=== PATIENT | male | born 1960 | race Two or more races ===

== ENCOUNTER 2017-11-14 20:51 | Inpatient (IN) | payer MEDICARE, MEDICAID ==
[~2017-11-14] VITALS: Ht 182.9 cm; Wt 132.4 kg
[2017-11-14] MEDS ORDERED: ALBU18HF2 (23:46)
[2017-11-14] MEDS ORDERED: LORA1TAB (23:46)
[2017-11-14] MEDS ORDERED: MONT10TA22 ×2 (23:46)
[2017-11-14] MEDS ORDERED: FOLI1TAB16 (23:46)
[2017-11-14] MEDS ORDERED: CHLO25CA22 PO (23:46)
[2017-11-14] MEDS ORDERED: METO50TA16 (23:46)
[2017-11-14] MEDS ORDERED: MAGN64TA13 PO (23:49)
[2017-11-14] MEDS ORDERED: IBUP800T54 PO (23:51)
[2017-11-15] MEDS ORDERED: MAGNESIUM HYDROXIDE 30 ML UDC PO PRN
[2017-11-15] MEDS ORDERED: MAG HYDROX/AL HYDROX/SIMETH 30 ML UDC PO PRN
[2017-11-15 00:48] VITALS: BP 145/80
[2017-11-15] MEDS: METOPROLOL TARTRATE 50 MG TABLET PO SCH ×3 (01:00→16:08)
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
--- NOTE | 2017-11-15 06:23 | NUR ---
GPS RN NOTES PT.REFUSED FULL BODY SKIN ASSESSMENT AND PT. ALLOWED TO ONLY SUPERFICIAL VISUAL SKIN ASSESSMENT, BOTH LOWER EXTREMITIES LYMPHEDEMA NOTED ,PICTURES TAKEN AND PLACED IN THE CHART, PT. ENCOURAGED FOR FULL BODY SKIN ASSESSMENT EXPLANID RISKS AND BENEFITS BUT STILL REFUSED.
--- NOTE | 2017-11-15 06:31 | NUR ---
GPS RN NOTED: DURING SHIFT NO BEHAVIOR PROBLEM NOTED , NO ACUTE DISTRESS NOTED , WILL CONTINUE TO MONITOR FOR SAFETY BEHAVIOR AND Q 15.
[2017-11-15 08:00] VITALS: BP 138/72
[2017-11-15] MEDS: FOLIC ACID 1 MG TABLET PO SCH (08:10)
[2017-11-15] MEDS: FAMOTIDINE (20 MG) 20 MG TABLET PO SCH (08:11)
[2017-11-15] MEDS: IBUPROFEN 400 MG TABLET PO PRN (08:11)
[2017-11-15] MEDS: MONTELUKAST SODIUM (10MG) 10 MG TABLET PO SCH (08:12)
[2017-11-15] MEDS ORDERED: FLUOXETINE HCL 20 MG/5 ML UDC PO SCH (12:30)
[2017-11-15] MEDS: FLUOXETINE HCL 20 MG CAPSULE PO SCH (13:39)
--- NOTE | 2017-11-15 15:00 | NUR ---
INITIAL DISCHARGE PLAN: Patient wishes to discharge home to [address] [place] [address] [facility] [address] . SW attempted to contact pts Vikash [phone] to confirm pt is able to return home. Pts did not answer phone SW left voicemail for callback. SHANITA will help form a safe and proper discharge in collaboration with .
[2017-11-15 16:00] VITALS: BP 159/81
[2017-11-15 19:44] VITALS: BP 177/90
[2017-11-16] MEDS: IBUPROFEN 400 MG TABLET PO PRN ×2 (06:45→20:08)
[2017-11-16 07:05] LABS: BASOPHILS % (AUTO) 0.4 % (0.0-2.0); EOSINOPHILS % (AUTO) 2.7 % (0.0-6.0); HEMATOCRIT 31 % (39-51); HEMOGLOBIN 9.7 g/dL (13.5-17.5); LYMPHOCYTES # (AUTO) 0.6 /CMM (0.8-4.8); LYMPHOCYTES % (AUTO) 25.9 % (20.0-44.0); MEAN CORPUSCULAR HGB CONC 32 g/dl (31.0-36.0); MEAN CORPUSCULAR VOLUME 101 fL (80-96); MONOCYTES # (AUTO) 0.2 /CMM (0.1-1.30); MONOCYTES % (AUTO) 8.6 % (2.0-12.0); NEUTROPHILS # (AUTO) 1.4 /CMM (1.8-8.9); NEUTROPHILS % (AUTO) 62.4 % (43.0-81.0); PLATELET COUNT (AUTO) 81 /CMM (150-450); RDW COEFFICIENT OF VARIATION 17.4 (11.5-15.0); RED BLOOD CELL COUNT(AUTO) 3.04 MIL/uL (4.5-6.0); WHITE BLOOD COUNT (AUTO) 2.2 K/uL (4.3-11.0)
[2017-11-16 07:36] LABS: ALBUMIN 2.7 g/dL (3.4-5.0); BILIRUBIN,TOTAL 2.3 mg/dL (0.2-1.0); CALCIUM, SERUM 8.7 mg/dL (8.5-10.1); MAGNESIUM 1.3 mg/dL (1.8-2.4); PHOSPHORUS 4.1 mg/dL (2.5-4.9); POTASSIUM 3.9 mmol/L (3.5-5.1); TOTAL PROTEIN, SERUM 6.6 g/dL (6.4-8.2)
[2017-11-16 07:38] LABS: THYROID STIMULATING HORMONE 6.225 uIU/mL (0.358-3.74)
[2017-11-16 08:00] VITALS: BP 156/87
[2017-11-16] MEDS: METOPROLOL TARTRATE 50 MG TABLET PO SCH ×2 (08:23→16:11)
[2017-11-16] MEDS: MONTELUKAST SODIUM (10MG) 10 MG TABLET PO SCH (08:23)
[2017-11-16] MEDS: FAMOTIDINE (20 MG) 20 MG TABLET PO SCH ×2 (08:23→09:00)
[2017-11-16] MEDS: FLUOXETINE HCL 20 MG CAPSULE PO SCH (08:23)
[2017-11-16] MEDS: FOLIC ACID 1 MG TABLET PO SCH (08:23)
[2017-11-16 08:47] LABS: BAND % (MANUAL) 1 % (0.0-5.0); EOSINOPHILS % (MANUAL) 5 % (0-4); LYMPHOCYTES % (MANUAL) 32 % (16-48); MONOCYTES % (MANUAL) 7 % (0-11.0); NEUTROPHILS % (MANUAL) 55 (42-76)
[2017-11-16] MEDS ORDERED: MAGNESIUM OXIDE 400 MG TABLET PO ONE (10:00)
--- NOTE | 2017-11-16 10:43 | NUR ---
WOUND CARE CONSULT: PT PRESENTS WITH LOWER EXTREMITY EDEMA WHICH IS " GOOD IT GETS" PER PT WITH LEG ELEVATION. DEFER TO MD FOR EDEMA. PT IS CONTINENT AND AMBULATORY. WILL SEE PRN.
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
--- NOTE | 2017-11-16 15:45 | NUR ---
LOWER EXTREMITY VENOUS DUPLEX AND ECHOCARDIOGRAM RESULT BY DR. SCHREIBER.
[2017-11-16 16:00] VITALS: BP 140/78
[2017-11-16 20:00] VITALS: BP 147/89
[2017-11-17 07:25] LABS: CALCIUM, SERUM 8.4 mg/dL (8.5-10.1); MAGNESIUM 1.3 mg/dL (1.8-2.4); POTASSIUM 4.1 mmol/L (3.5-5.1)
[2017-11-17 08:00] VITALS: BP 154/85
[2017-11-17] MEDS: FLUOXETINE HCL 20 MG CAPSULE PO SCH (09:11)
[2017-11-17] MEDS: MONTELUKAST SODIUM (10MG) 10 MG TABLET PO SCH (09:11)
[2017-11-17] MEDS: FOLIC ACID 1 MG TABLET PO SCH (09:11)
[2017-11-17] MEDS: FAMOTIDINE (20 MG) 20 MG TABLET PO SCH (09:11)
[2017-11-17] MEDS: METOPROLOL TARTRATE 50 MG TABLET PO SCH ×2 (09:12→17:34)
[2017-11-17] MEDS: LORAZEPAM 1 MG TABLET PO PRN (09:18)
--- NOTE | 2017-11-17 09:29 | NUR ---
GPS/RN-NOTES PATIENT REQUESTING ATIVAN STATED" I'M GETTING ANXIOUS". ATIVAN 1MG P.O GIVEN PRN ORDER. WILL CONT. MONITORING FOR SAFETY AND BEHAVIOR.
[2017-11-17] MEDS ORDERED: MAGNESIUM OXIDE 400 MG TABLET PO ONE (11:00)
[2017-11-17] MEDS ORDERED: GUAIFENESIN/CODEINE 10 ML UDC PO PRN (14:00)
--- NOTE | 2017-11-17 14:16 | NUR ---
GPS/RN-NOTES NOTED PATIENT WITH EPISODE OF COUGHING,DR. SCHREIBER MADE AWARE WITH T.O ORDER OF ROBITUSSIN 100MG P.O Q4HRS PRN .NOTED AND CARRIED OUT.
[2017-11-17 16:00] VITALS: BP 158/88
[2017-11-17] MEDS: GUAIFENESIN 300 MG/15 ML UDC PO PRN ×2 (16:20→21:18)
--- NOTE | 2017-11-17 16:30 | NUR ---
GPS/RN-NOTES PATIENT NOTED COUGHING ,ROBITUSSIN 100MG P.O GIVEN PRN ORDER.
[2017-11-17] MEDS: IBUPROFEN 400 MG TABLET PO PRN (17:53)
--- NOTE | 2017-11-17 17:55 | NUR ---
GPS/RN-NOTES PATIENT REQUESTING MOTRIN FOR HIS 710 LEFT LEG. MOTRIN 400MG P.O GIVEN PRN ORDER.
--- NOTE | 2017-11-17 18:00 | NUR ---
GPS/RN-NOTES PATIENT STRONGLY REFUSED SHOWER THIS SHIFT DESPITE ENCOURAGEMENT. PATIENT GETS IRRITATED AND ANGRY. OFFERED SEVERAL TIMES BUT PATIENT STILL REFUSED.
[2017-11-17 20:00] VITALS: BP 151/78
[2017-11-17] MEDS: TEMAZEPAM 7.5 MG CAPSULE PO PRN (21:44)
[2017-11-18] MEDS: LORAZEPAM 1 MG TABLET PO PRN ×2 (00:10→23:17)
[2017-11-18] MEDS: GUAIFENESIN 300 MG/15 ML UDC PO PRN ×4 (01:30→22:11)
[2017-11-18] MEDS: ACETAMINOPHEN 325 MG TABLET PO PRN ×2 (07:37→16:53)
[2017-11-18 07:38] LABS: CALCIUM, SERUM 8.6 mg/dL (8.5-10.1); CREATININE 1.1 mg/dL (0.6-1.3)
[2017-11-18 07:59] LABS: MAGNESIUM 1.2 mg/dL (1.8-2.4)
[2017-11-18 08:00] VITALS: BP 178/99
--- NOTE | 2017-11-18 08:09 | NUR ---
DR. SCHREIBER NOTIFIED ABOUT THE TEMP OF 102 AND PT. IS COUGHING AND WITH ORDERS AND WAS NOTIFIED ABOUT THE MAGNESIUM OF 1.2.
[2017-11-18] MEDS: ALBUTEROL FS 2.5 MG/3 ML VIAL.NEB NEB PRN ×2 (08:17→20:09)
[2017-11-18] MEDS: FLUOXETINE HCL 20 MG CAPSULE PO SCH (08:35)
[2017-11-18] MEDS: FAMOTIDINE (20 MG) 20 MG TABLET PO SCH (08:35)
[2017-11-18] MEDS: FOLIC ACID 1 MG TABLET PO SCH (08:35)
[2017-11-18] MEDS: METOPROLOL TARTRATE 50 MG TABLET PO SCH ×2 (08:36→16:36)
[2017-11-18] MEDS: MONTELUKAST SODIUM (10MG) 10 MG TABLET PO SCH (08:36)
[2017-11-18] MEDS: LEVOFLOXACIN (500MG) 500 MG TABLET PO SCH (09:56)
[2017-11-18] MEDS: MAGNESIUM OXIDE 400 MG TABLET PO SCH ×2 (09:56→16:53)
--- NOTE | 2017-11-18 10:00 | NUR ---
GPS/RN-NOTES PATIENT TEMP. AT THIS TIME WAS 99. ENCOURAGE TO INCREASE FLUID INTAKE. ALSO OFFERED SHOWER BUT PATIENT REFUSED.
[2017-11-18 15:22] LABS: APPEARANCE,URINE CLEAR (CLEAR); BILIRUBIN,URINE NEGATIVE (NEGATIVE); BLOOD, URINE NEGATIVE Ery/uL (NEGATIVE); KETONES,URINE NEGATIVE (NEGATIVE); LEUKOCYTE ESTERASE ,URINE NEGATIVE (NEGATIVE); NITRITE, URINE NEGATIVE (NEGATIVE); PROTEIN,URINE NEGATIVE (NEGATIVE); UGLUCOSE NEGATIVE (NEGATIVE)
[2017-11-18 15:26] LABS: COLOR,URINE DARK YELLOW (YELLOW)
[2017-11-18 15:27] LABS: BACTERIA,URINE RARE /HPF (None Seen); RBC,URINE 0-2 /HPF (0-2); SQUAMOUS EPITHELIAL CELL,UR RARE /HPF (None Seen); WBC,URINE 0-2 /HPF (0-3)
[2017-11-18 16:00] VITALS: BP 165/91
[2017-11-18 20:00] VITALS: BP 158/99
[2017-11-18] MEDS ORDERED: GUAIFENESIN/D-METHORPHAN HB 5 ML UDC ONE ×3 (20:58→21:02)
[2017-11-18] MEDS: TEMAZEPAM 7.5 MG CAPSULE PO PRN (22:12)
[2017-11-19] MEDS: GUAIFENESIN 300 MG/15 ML UDC PO PRN ×3 (05:45→20:44)
[2017-11-19 07:54] LABS: BASOPHILS % (AUTO) 0.2 % (0.0-2.0); EOSINOPHILS % (AUTO) 0.9 % (0.0-6.0); HEMATOCRIT 30 % (39-51); HEMOGLOBIN 10.1 g/dL (13.5-17.5); LYMPHOCYTES # (AUTO) 0.4 /CMM (0.8-4.8); LYMPHOCYTES % (AUTO) 12.5 % (20.0-44.0); MEAN CORPUSCULAR HGB CONC 34 g/dl (31.0-36.0); MEAN CORPUSCULAR VOLUME 101 fL (80-96); MONOCYTES # (AUTO) 0.5 /CMM (0.1-1.30); MONOCYTES % (AUTO) 18.3 % (2.0-12.0); NEUTROPHILS # (AUTO) 1.9 /CMM (1.8-8.9); NEUTROPHILS % (AUTO) 68.1 % (43.0-81.0); PLATELET COUNT (AUTO) 71 /CMM (150-450); RDW COEFFICIENT OF VARIATION 16.8 (11.5-15.0); WHITE BLOOD COUNT (AUTO) 2.8 K/uL (4.3-11.0)
[2017-11-19 08:00] VITALS: BP 151/78
[2017-11-19 08:14] LABS: CALCIUM, SERUM 8.1 mg/dL (8.5-10.1); CREATININE 1.1 mg/dL (0.6-1.3); MAGNESIUM 1.6 mg/dL (1.8-2.4); PHOSPHORUS 2.9 mg/dL (2.5-4.9); POTASSIUM 3.8 mmol/L (3.5-5.1)
[2017-11-19] MEDS: TEMAZEPAM 7.5 MG CAPSULE PO PRN (08:53)
[2017-11-19] MEDS: Fluoxetine 10 mg capsule PO SCH (08:56)
[2017-11-19] MEDS: MONTELUKAST SODIUM (10MG) 10 MG TABLET PO SCH (08:56)
[2017-11-19] MEDS: LEVOFLOXACIN (500MG) 500 MG TABLET PO SCH (08:56)
[2017-11-19] MEDS: FOLIC ACID 1 MG TABLET PO SCH (08:56)
[2017-11-19] MEDS: MAGNESIUM OXIDE 400 MG TABLET PO SCH ×2 (08:56→17:28)
[2017-11-19] MEDS: FAMOTIDINE (20 MG) 20 MG TABLET PO SCH (08:56)
[2017-11-19] MEDS: METOPROLOL TARTRATE 50 MG TABLET PO SCH ×2 (08:58→17:29)
[2017-11-19 09:19] LABS: LYMPHOCYTES % (MANUAL) 15 % (16-48); MONOCYTES % (MANUAL) 15 % (0-11.0); NEUTROPHILS % (MANUAL) 70 (42-76)
--- NOTE | 2017-11-19 11:53 | NUR ---
GPS/RN DR SCHREIBER MADE AWARE OF MAG 1.6. NO NEW ORDERS GIVEN, JUST TO CONTINUE WITH PO.
[2017-11-19] MEDS: LORAZEPAM 1 MG TABLET PO PRN ×2 (12:32→20:41)
[2017-11-19 16:00] VITALS: BP 146/77
[2017-11-19 20:18] VITALS: BP 140/73
[2017-11-19] MEDS ORDERED: ALBUTEROL FS 2.5 MG/3 ML VIAL.NEB ONE (20:51)
[2017-11-20] MEDS: GUAIFENESIN 300 MG/15 ML UDC PO PRN ×3 (02:05→22:19)
[2017-11-20] MEDS ORDERED: ALBUTEROL FS 2.5 MG/3 ML VIAL.NEB ONE (02:21)
--- NOTE | 2017-11-20 02:31 | NUR ---
GPS RN NOTE: PATIENT WAS COUGHING, WHEEZING AND HAVING A HARD TIME TO BREATH, O2 SAT 92%, COUGH MEDICATION GIVEN ORDERED, BREATHING TREATMENT GIVEN BY RT NEEDED, O2 2LPM VIA NC GIVEN FOR COMFORT AND EFFECTIVE O2 SAT INCREASE TO 97%, PAGED DR. BRANCH, WILL CONTINUE TO MONITOR [id number]
--- NOTE | 2017-11-20 02:50 | NUR ---
GPS RN NOTE, PATIENT STATES HE HAS BEEN COUGHING FOR 48 HOURS AND IS HAVING CHEST PAIN CROSS BOTH SHOULDERS WHEN HE HAS A COUGHING EPISODE. PATIENT VITAL SIGNS ARE FOLLOWS B/P 140 / 79, TEMP 98.7, RESPIRATIONS 20, PULSE 85, SPO2 92% 0N TWO LITERS OF O2. PAGED [facility] [employer] AND INFORMED DR STEINER OF MY FINDINGS. DR STEINER ORDERED TO NITROSTAT 0.4MG SL MAY REPEAT Q 5 MIN X 2 PRN FOR CHEST PAIN, HAVE A STAT TROPONIN I DRAWN AND REPEAT TROPONIN I @ 7:00 AM. ALL ORDERS NOTED AND CARRIED OUT. WILL CONTINUE TO MONITOR THIS PATIENT.
[2017-11-20] MEDS ORDERED: NITROGLYCERIN 0.4 MG/TAB BOTTLE SL PRN (03:00)
[2017-11-20] MEDS: LORAZEPAM 1 MG TABLET PO PRN ×2 (03:03→16:41)
[2017-11-20] MEDS: IBUPROFEN 400 MG TABLET PO PRN (03:07)
[2017-11-20 07:45] LABS: BASOPHILS % (AUTO) 0.1 % (0.0-2.0); EOSINOPHILS % (AUTO) 1.7 % (0.0-6.0); HEMATOCRIT 34 % (39-51); HEMOGLOBIN 10.9 g/dL (13.5-17.5); LYMPHOCYTES # (AUTO) 0.6 /CMM (0.8-4.8); LYMPHOCYTES % (AUTO) 13.5 % (20.0-44.0); MEAN CORPUSCULAR HGB CONC 33 g/dl (31.0-36.0); MEAN CORPUSCULAR VOLUME 101 fL (80-96); MONOCYTES # (AUTO) 0.6 /CMM (0.1-1.30); MONOCYTES % (AUTO) 12.8 % (2.0-12.0); NEUTROPHILS # (AUTO) 3.3 /CMM (1.8-8.9); NEUTROPHILS % (AUTO) 71.9 % (43.0-81.0); PLATELET COUNT (AUTO) 125 /CMM (150-450); RDW COEFFICIENT OF VARIATION 16.6 (11.5-15.0); RED BLOOD CELL COUNT(AUTO) 3.31 MIL/uL (4.5-6.0); WHITE BLOOD COUNT (AUTO) 4.6 K/uL (4.3-11.0)
[2017-11-20 07:49] LABS: CALCIUM, SERUM 8.3 mg/dL (8.5-10.1); MAGNESIUM 1.8 mg/dL (1.8-2.4); PHOSPHORUS 4.1 mg/dL (2.5-4.9); POTASSIUM 3.4 mmol/L (3.5-5.1)
[2017-11-20 08:00] VITALS: BP 95/53
[2017-11-20] MEDS: ALBUTEROL FS 2.5 MG/3 ML VIAL.NEB NEB SCH ×3 (08:07→20:34)
[2017-11-20] MEDS: METOPROLOL TARTRATE 50 MG TABLET PO SCH ×2 (08:11→16:23)
[2017-11-20] MEDS: MONTELUKAST SODIUM (10MG) 10 MG TABLET PO SCH (08:52)
[2017-11-20] MEDS: Fluoxetine 10 mg capsule PO SCH (08:52)
[2017-11-20] MEDS: FAMOTIDINE (20 MG) 20 MG TABLET PO SCH (08:52)
[2017-11-20] MEDS: MAGNESIUM OXIDE 400 MG TABLET PO SCH ×2 (08:53→16:22)
[2017-11-20] MEDS: LEVOFLOXACIN (500MG) 500 MG TABLET PO SCH (08:53)
[2017-11-20] MEDS: FOLIC ACID 1 MG TABLET PO SCH (08:58)
[2017-11-20] MEDS ORDERED: POTASSIUM CHLORIDE 20 MEQ TAB.PRT.SR PO SCH ×2 (11:00→16:00)
--- NOTE | 2017-11-20 11:17 | NUR ---
SW spoke with pts sister Lexie [phone] after pts requested pts sister contact SW to discuss pts discharge plan. Pt sister stated that pts is willing to accept pt back home however, wanted options for reintegration and also wanted referrals to address pts alcohol abuse. SW informed pts sister that referring pt to a residential treatment program can be an option for discharge if pt agrees. Pts sister stated that pt would not agree to go and stated he is able to return home.
--- NOTE | 2017-11-20 15:30 | NUR ---
gps brake repairer air: notes potassium chloride 20meq po x 1 order not given; pharmacist notified and made aware and ask to renew med.
[2017-11-20 16:00] VITALS: BP 120/67
--- NOTE | 2017-11-20 16:21 | NUR ---
pts Vikash [phone] contacted SW to discuss discharge plan. Pts stated that she wants pt to be discharged to a rehab facility. SW explained that pt has to be accepting of residential treatment for his alcohol use in order for SW to refer pt. SW informed pts that pt has denied residential treatment, she mentioned to SW that she would speak to pt today regarding placement to a treatment program.
[2017-11-20 20:43] VITALS: BP 127/76
[2017-11-20] MEDS: TEMAZEPAM 7.5 MG CAPSULE PO PRN (21:15)
[2017-11-21] MEDS: ALBUTEROL FS 2.5 MG/3 ML VIAL.NEB NEB SCH ×4 (01:30→21:08)
[2017-11-21] MEDS: IBUPROFEN 400 MG TABLET PO PRN ×2 (02:14→21:25)
[2017-11-21] MEDS: LORAZEPAM 1 MG TABLET PO PRN ×2 (02:26→16:38)
--- NOTE | 2017-11-21 02:35 | NUR ---
RN NOTES. PATIENT IN ACTIVITY ROOM. SITTER AT BEDSIDE. NO NEEDS AT THIS TIME. BEHAVIOR ACCEPTABLE. CLOSELY WATCHED. Addendum: 11/21/17 at 0238 by SERGE GAO RN ABOVE NOTES TIME WAS Oct.
--- NOTE | 2017-11-21 02:36 | NUR ---
RN NOTES SPENDS TIME SITTING ON A CHAIR. 02 ON AT 2L. NO SOB SEEN. CLOSELY WATCHED. SITTER AT BEDSIDE.
--- NOTE | 2017-11-21 06:53 | NUR ---
RN NOTES SLEEPS ON/OFF, REMAINS UNCHANGED.
[2017-11-21 07:32] LABS: CALCIUM, SERUM 8.1 mg/dL (8.5-10.1); CREATININE 1.1 mg/dL (0.6-1.3); POTASSIUM 3.7 mmol/L (3.5-5.1)
[2017-11-21 08:00] VITALS: BP 100/65
[2017-11-21] MEDS: METOPROLOL TARTRATE 50 MG TABLET PO SCH ×2 (09:00→16:35)
[2017-11-21] MEDS: Fluoxetine 10 mg capsule PO SCH (09:14)
[2017-11-21] MEDS: MONTELUKAST SODIUM (10MG) 10 MG TABLET PO SCH (09:14)
[2017-11-21] MEDS: FAMOTIDINE (20 MG) 20 MG TABLET PO SCH (09:14)
[2017-11-21] MEDS: MAGNESIUM OXIDE 400 MG TABLET PO SCH ×2 (09:14→16:38)
[2017-11-21] MEDS: LEVOFLOXACIN (500MG) 500 MG TABLET PO SCH (09:14)
[2017-11-21] MEDS: FOLIC ACID 1 MG TABLET PO SCH (09:14)
--- NOTE | 2017-11-21 15:55 | NUR ---
SHANITA contacted pts Vikash [phone] to arrange discharge for 11/23/17 at 3:00pm. Pts stated she would pick pt up and transport home.
[2017-11-21 16:00] VITALS: BP 110/88
[2017-11-21] MEDS: GUAIFENESIN 300 MG/15 ML UDC PO PRN ×2 (16:38→22:31)
--- NOTE | 2017-11-21 16:38 | NUR ---
[id number]: GAVE ROBITUSSIN 100 MG PO DUE TO SORE THROAT UPON PT REQUEST AND WILL CONTINUE TO MONITOR FOR EFFECTIVENESS OF MEDICATION
--- NOTE | 2017-11-21 16:38 | NUR ---
[id number]: GAVE ATIVAN 1.5 MG PO DUE TO INCREASED ANXIETY UPON PT REQUEST AND WILL CONTINUE TO MONITOR FOR EFFECTIVENESS OF MEDICATION
--- NOTE | 2017-11-21 19:14 | NUR ---
RN NOTES Patient in the activity room, talking to family member. No complaints as of this time
[2017-11-21 20:21] VITALS: BP 150/84
[2017-11-21] MEDS: TEMAZEPAM 7.5 MG CAPSULE PO PRN (21:25)
--- NOTE | 2017-11-21 21:26 | NUR ---
RN NOTES Complaining of pain in left forearm, motrin 400mg given as ordered
[2017-11-22] MEDS: ALBUTEROL FS 2.5 MG/3 ML VIAL.NEB NEB SCH ×4 (01:30→20:36)
[2017-11-22 08:00] VITALS: BP 119/61
[2017-11-22] MEDS: MONTELUKAST SODIUM (10MG) 10 MG TABLET PO SCH (09:12)
[2017-11-22] MEDS: Fluoxetine 10 mg capsule PO SCH (09:12)
[2017-11-22] MEDS: FAMOTIDINE (20 MG) 20 MG TABLET PO SCH (09:12)
[2017-11-22] MEDS: MAGNESIUM OXIDE 400 MG TABLET PO SCH ×2 (09:13→17:14)
[2017-11-22] MEDS: FOLIC ACID 1 MG TABLET PO SCH (09:13)
[2017-11-22] MEDS: METOPROLOL TARTRATE 50 MG TABLET PO SCH ×2 (09:13→17:15)
[2017-11-22] MEDS: LEVOFLOXACIN (500MG) 500 MG TABLET PO SCH (09:14)
--- NOTE | 2017-11-22 09:31 | NUR ---
SW spoke with pt regarding residential treatment to address his substance use. Pt stated he was going to go to the [facility] [address] and speak to his counselor regarding his alcohol use after his discharge home.
[2017-11-22] MEDS: GUAIFENESIN 300 MG/15 ML UDC PO PRN (10:59)
[2017-11-22] MEDS: LORAZEPAM 1 MG TABLET PO PRN ×3 (10:59→22:38)
[2017-11-22 16:53] VITALS: BP 148/98
--- NOTE | 2017-11-22 19:30 | NUR ---
RECEIVED PATIENT SITTING IN CHAIR IN DINING ROOM; READING. AO X 3, ABLE TO MAKE NEEDS KNOWN. NO ACUTE DISTRESS NOTED. DENIES ANY PAIN AT THIS TIME. SAFETY REMINDERS GIVEN. ROOM HAS LOW BED WITH BILATERAL UPPER SIDE RAILS UP. CALL MAZA WITHIN EASY REACH. WILL CONTINUE TO MONITOR.
[2017-11-22 19:45] VITALS: BP 145/85
[2017-11-22 19:51] VITALS: BP 145/85
[2017-11-22 19:56] VITALS: BP 145/85
[2017-11-22] MEDS: TEMAZEPAM 7.5 MG CAPSULE PO PRN (21:34)
[2017-11-22] MEDS: IBUPROFEN 400 MG TABLET PO PRN (22:33)
[2017-11-23] MEDS: ALBUTEROL FS 2.5 MG/3 ML VIAL.NEB NEB SCH ×3 (01:30→13:48)
--- NOTE | 2017-11-23 06:48 | NUR ---
PATIENT ASLEEP, EASILY AROUSABLE. RESPIRATIONS EVEN. DUE MEDS GIVEN WITH NO ASE NOTED. NEEDS ATTENDED. PATIENT SLEPT WELL. SAFETY PRECAUTIONS AND COMFORT MEASURES IN PLACE. WILL GIVE REPORT TO DAY SHIFT FOR CONTINUITY OF CARE.
[2017-11-23 08:00] VITALS: BP 142/82
--- NOTE | 2017-11-23 08:30 | NUR ---
RESP TX DEFERRED Addendum: 11/23/17 at 0831 by DERRICK ANTHONY Amended: Links added.
[2017-11-23] MEDS: FAMOTIDINE (20 MG) 20 MG TABLET PO SCH (09:02)
[2017-11-23] MEDS: FOLIC ACID 1 MG TABLET PO SCH (09:02)
[2017-11-23] MEDS: MONTELUKAST SODIUM (10MG) 10 MG TABLET PO SCH (09:02)
[2017-11-23] MEDS: MAGNESIUM OXIDE 400 MG TABLET PO SCH (09:02)
[2017-11-23 09:03] VITALS: BP 142/82
[2017-11-23] MEDS: METOPROLOL TARTRATE 50 MG TABLET PO SCH (09:03)
[2017-11-23] MEDS: Fluoxetine 10 mg capsule PO SCH (09:09)
[2017-11-23] MEDS: LORAZEPAM 1 MG TABLET PO PRN (09:09)
--- NOTE | 2017-11-23 12:59 | NUR ---
DR. BA GAVE AN ORDER TO D/C HOLD AND D/C HOME AND TO FOLLOW UP WITH PSYCH AND MEDICAL DOCTORS. DR. DEXTER MADE AWARE OF THE DISCHARGE, D/C OXYGEN AND WROTE PRESCRIPTIONS AND SAID OK FOR DISCHARGE. PT. WITHOUT DISTRESS, DENIES SUICIDAL AND HOMICIDAL. BELONGINGS READY AND DISCHARGE PAPERS READY.
--- NOTE | 2017-11-23 15:05 | NUR ---
PT. LEFT THE UNIT AND PICKED BY DENISSE WITH BELONGINGS AND TRANSPORTED VIA A WHEELCHAIR TO THE [facility] BY STAFF. PT. INSTRUCTED ON MEDS TO CONTINUE AT HOME AND VERBALIZES UNDERSTANDING AND INSTRUCTED TO MAKE A FOLLOW UP WITH PSYCH AND MEDICAL DOCTORS AND AGREED. LEFT WITHOUT DISTRESS, AND ON STABLE CONDITION. V/S TAKEN: BP 147/87, WA 78, RR 18, TEMP 98.7 AND OXYGEN SAT 96%. Addendum: 11/23/17 at 1551 by MARY ALAMO RN WAS PICKED UP BY JOSE ALEJANDRO. OXYGEN SAT 96% AT ROOM AIR.
--- NOTE | 2017-11-23 15:14 | NUR ---
DISCHARGE NOTE: Pt was discharged at 3:00pm home to [address] [facility] [address] via private vehicle by Vikash [phone]. Pt agreed to discharge plan. Pt denied suicidal/homicidal ideations and denied visual/auditory hallucinations. Pt was in a pleasant mood with congruent affect. Patient has a history of alcohol use and was provided referral to address his substance use. Patient was referred to the [address] [address] / and was encouraged to present at 9am on Friday November 24, 2017. Additional resources included [facility] [address] [place] [address] and [facility] [address] [place] [address] . Pt stated he would schedule an appointment with his counselor at the [facility]:[id number] [id number] [place] [address] to address his alcohol use. Pt will also schedule a follow-up appointment with his Psychiatrist: Dr. Bhupendra Velasquez [facility]:[id number] [place] [address] and Information Operator: Dr. Paige Campbellulveda: [id number] [facility] [id number] [place] [address] . The multidisciplinary exitcare form was done, printed, signed, and given to the patient.
== END 2017-11-23 15:15 | disposition home or self-care (01) | DRG 885 ==
LOC: GPS 23:11
PROVIDERS: ADMIT Psychiatry & Neurology Psychosomatic Medicine; ATTEND Internal Medicine
DX: F33.2 Major depressive disorder, recurrent severe without psychotic features (principal); R45.851 Suicidal ideations; F29 Unspecified psychosis not due to a substance or known physiological condition; F41.9 Anxiety disorder, unspecified; R45.850 Homicidal ideations; I10 Essential (primary) hypertension; Z85.46 Personal history of malignant neoplasm of prostate; I89.0 Lymphedema, not elsewhere classified; E83.42 Hypomagnesemia; R50.9 Fever, unspecified; F19.10 Other psychoactive substance abuse, uncomplicated
CPT/HCPCS: 36415; 71045-TC; 80048-TC; 80053-TC; 80061-TC; 80305; 81000-TC; 82962-TC; 83735-TC; 84100-TC; 84443-TC; 84484-TC; 85025-TC; 87081-TC; 87086-TC; 93307-TC; 93970-TC; 94799-TC